=== PATIENT | female | born 1955 | race Caucasian/White ===

== ENCOUNTER → 2016-12-23 | Outpatient (CLI) | payer MEDICARE | LOC: LAB 14:34 | DX: Z79.899 Other long term (current) drug therapy (principal) | CPT/HCPCS: 80307 ==

== ENCOUNTER 2017-01-02 13:38 | Emergency (ER) | payer MEDICARE, OTHER ==
[2017-01-02 17:33] LABS: HEMOGLOBIN 15.8 gm/dl (12.3-15.3); RED BLOOD COUNT 5.56 M/UL (4.00-5.10); WHITE BLOOD COUNT 10.3 K/UL (4.5-11.0)
[2017-01-02 18:08] LABS: BUN/CREATININE RATIO 22 (0-10)
== END 2017-01-02 18:00 | disposition home or self-care (01) ==
LOC: ER1 13:38
PROVIDERS: Physician Assistant
DX: K59.00 Constipation, unspecified (principal); I10 Essential (primary) hypertension; F17.210 Nicotine dependence, cigarettes, uncomplicated; Z88.0 Allergy status to penicillin; Z88.6 Allergy status to analgesic agent; Z87.442 Personal history of urinary calculi; Z90.49 Acquired absence of other specified parts of digestive tract
CPT/HCPCS: 36415; 80053; 81001; 85025; 87077; 87086; 87186; 99284

== ENCOUNTER → 2020-08-17 | Outpatient (CLI) | payer OTHER ==
[~2020-08-17] MED LIST: BREO ELLIPTA 11 EACH INH; CRESTOR10 MG PO; ECOTRIN81 MG PO; FLOVENT DISKUS50 MCG INH; K-DUR TAB 10 M10 MEQ PO; K-DUR TAB 20 M20 MEQ PO; LASIX40 MG PO; LEVOCETIRIZINE D5 MG PO; LEXAPRO20 MG PO; MORPHINE SULFAT60 M3 PO; NITROSTAT0.4 MG SL; NORVASC 5 MG TAB5 MG PO; OMNICEF 300 MG300 MG PO; PERCOCET 5/325 T1 EA PO; PLAVIX 75 MG TA75 MG PO; PRINIVIL5 MG PO; PYRIDIUM100 MG PO; SYNTHROID125 MCG PO; ULTRAM50 MG PO; VITAMIN D250000 UNIT PO; XANAX1 MG PO
== END ==
LOC: MAMO 09:00 → CT 10:00 → MAMO 08-18 09:30
DX: Z12.31 Encounter for screening mammogram for malignant neoplasm of breast (principal); F17.210 Nicotine dependence, cigarettes, uncomplicated
CPT/HCPCS: 71250; 77063; 77067

== ENCOUNTER 2020-09-16 14:56 | Emergency (ER) | payer OTHER | END 2020-09-16 15:16 | disposition left against medical advice (07) | LOC: ER1 14:56 | DX: Z53.21 Procedure and treatment not carried out due to patient leaving prior to being seen by health care provider (principal) ==

== ENCOUNTER → 2020-10-01 | Outpatient (CLI) | payer OTHER | LOC: RAD 13:34 | DX: M25.562 Pain in left knee (principal); M17.12 Unilateral primary osteoarthritis, left knee | CPT/HCPCS: 73564 ==

== ENCOUNTER → 2020-10-12 | Outpatient (CLI) | payer OTHER | LOC: EXRD 13:41 | DX: R10.9 Unspecified abdominal pain (principal) | CPT/HCPCS: 76775 ==

== ENCOUNTER 2021-01-01 22:32 | Emergency (ER) | payer OTHER ==
[2021-01-01 23:35] LABS: BUN/CREATININE RATIO 12 (0-10)
[2021-01-02 00:03] LABS: HEMOGLOBIN 15.9 gm/dl (12.3-15.3); RED BLOOD COUNT 5.71 M/UL (4.00-5.10); WHITE BLOOD COUNT 11.8 K/UL (4.5-11.0)
[2021-01-12 06:11] LABS: ALPRAZOLAM Positive (.); ALPRAZOLAM CONFIRM 360 ng/mL (Cutoff=100); AMPHETAMINES, URINE Negative ng/mL (Cutoff=1000); BARBITURATE Negative ng/mL (Cutoff=200); BENZODIAZEPINES Positive ng/mL (Cutoff=100); BENZODIAZEPINES See Final Results ng/mL (Cutoff=200); CANNABINOIDS Negative ng/mL (Cutoff=20); CLONAZEPAM Negative (Cutoff=100); COCAINE (METABOLITE) Negative ng/mL (Cutoff=300); CODEINE Negative (Cutoff=300); CREATININE 123.7 mg/dL (20.0-300.0); FLURAZEPAM Negative (Cutoff=100); HYDROCODONE Negative (Cutoff=300); HYDROMORPHONE Positive (.); HYDROMORPHONE CONFIRM 634 ng/mL (Cutoff=300); LORAZEPAM Negative (Cutoff=100); MEPERIDINE Negative ng/mL (Cutoff=200); METHADONE Negative ng/mL (Cutoff=300); MIDAZOLAM Negative (Cutoff=100); MORPHINE Positive (.); MORPHINE CONFIRM >3000 ng/mL (Cutoff=300); NORDIAZEPAM Negative (Cutoff=100); OPIATES Positive ng/mL (Cutoff=300); OPIATES See Final Results ng/mL (Cutoff=300); OXAZEPAM Negative (Cutoff=100); PHENCYCLIDINE Negative ng/mL (Cutoff=25); PROPOXYPHENE Negative ng/mL (Cutoff=300); TEMAZEPAM Negative (Cutoff=100); TRIAZOLAM Negative (Cutoff=100)
== END 2021-01-02 16:30 | disposition short-term general hospital (02) ==
LOC: ER1 22:32
PROVIDERS: Nurse Practitioner
DX: M62.81 Muscle weakness (generalized) (principal); E87.6 Hypokalemia; M54.9 Dorsalgia, unspecified; G89.29 Other chronic pain; Z90.710 Acquired absence of both cervix and uterus; F17.200 Nicotine dependence, unspecified, uncomplicated
CPT/HCPCS: 70450; 71045; 73030; 73080; 73090; 80053; 80307; 81001; 82550; 82553; 83735; 83874; 84484; 85025; 93005; 93971; 99285

== ENCOUNTER → 2021-02-15 | Outpatient (CLI) | payer OTHER | LOC: US 13:30 | DX: E03.9 Hypothyroidism, unspecified (principal); R22.1 Localized swelling, mass and lump, neck | CPT/HCPCS: 76536 ==

== ENCOUNTER → 2021-03-03 | Outpatient (CLI) | payer OTHER | LOC: RAD 15:17 | DX: M25.521 Pain in right elbow (principal) | CPT/HCPCS: 73080 ==

== ENCOUNTER → 2021-04-13 | Outpatient (CLI) | payer OTHER | LOC: KOH-I 09:21 | DX: M24.021 Loose body in right elbow (principal); M19.021 Primary osteoarthritis, right elbow; S53.431A Radial collateral ligament sprain of right elbow, initial encounter | CPT/HCPCS: 73221 ==

== ENCOUNTER 2021-05-01 16:44 | Emergency (ER) | payer OTHER ==
[2021-05-01 17:44] LABS: HEMOGLOBIN 17.6 gm/dl (12.3-15.3); RED BLOOD COUNT 5.82 M/UL (4.00-5.10); WHITE BLOOD COUNT 14.2 K/UL (4.5-11.0)
[2021-05-01 17:54] LABS: BUN/CREATININE RATIO 15 (0-10)
== END 2021-05-01 21:56 | disposition home or self-care (01) ==
LOC: ER1 16:44
PROVIDERS: Student in an Organized Health Care Education/Training Program
DX: R07.89 Other chest pain (principal); I25.10 Atherosclerotic heart disease of native coronary artery without angina pectoris; I10 Essential (primary) hypertension; E87.6 Hypokalemia; F17.210 Nicotine dependence, cigarettes, uncomplicated; Z90.49 Acquired absence of other specified parts of digestive tract; Z90.710 Acquired absence of both cervix and uterus; Z88.0 Allergy status to penicillin; Z88.1 Allergy status to other antibiotic agents
CPT/HCPCS: 71045; 80053; 82550; 82553; 83874; 84484; 85025; 93005; 99285; Q9967

== ENCOUNTER → 2021-08-31 | Outpatient (CLI) | payer OTHER | LOC: KOH-I 09:00 | DX: M51.36 Other intervertebral disc degeneration, lumbar region (principal); M48.061 Spinal stenosis, lumbar region without neurogenic claudication; M53.3 Sacrococcygeal disorders, not elsewhere classified; M54.59 Other low back pain; R10.2 Pelvic and perineal pain; M47.818 Spondylosis without myelopathy or radiculopathy, sacral and sacrococcygeal region | CPT/HCPCS: 72131; 72192 ==

== ENCOUNTER → 2021-09-22 | Outpatient (CLI) | payer OTHER | LOC: HEART 5 09:46 | DX: J45.909 Unspecified asthma, uncomplicated (principal) | CPT/HCPCS: 94060; 94729 ==

== ENCOUNTER → 2021-10-15 | Day surgery (SDC) | payer OTHER ==
[~2021-10-15] MED LIST changes: +ALBUTEROL SULFATE; +SINGULAIR10 MG PO; +ZOLOFT25 MG PO
== END | disposition home or self-care (01) ==
LOC: OR 06:38
DX: Z12.11 Encounter for screening for malignant neoplasm of colon (principal); D12.0 Benign neoplasm of cecum; D12.2 Benign neoplasm of ascending colon; D12.5 Benign neoplasm of sigmoid colon; D12.3 Benign neoplasm of transverse colon; K29.70 Gastritis, unspecified, without bleeding; K44.9 Diaphragmatic hernia without obstruction or gangrene; K22.81 Esophageal polyp; K21.00 Gastro-esophageal reflux disease with esophagitis, without bleeding; I10 Essential (primary) hypertension; E78.5 Hyperlipidemia, unspecified; J42 Unspecified chronic bronchitis; M79.7 Fibromyalgia; F17.210 Nicotine dependence, cigarettes, uncomplicated; F41.9 Anxiety disorder, unspecified; F32.A Depression, unspecified; Z86.010 Personal history of colon polyps; Z88.0 Allergy status to penicillin; Z88.1 Allergy status to other antibiotic agents; Z88.6 Allergy status to analgesic agent; Z79.891 Long term (current) use of opiate analgesic; Z79.899 Other long term (current) drug therapy; Z90.49 Acquired absence of other specified parts of digestive tract
CPT/HCPCS: J2704; J7030

== ENCOUNTER 2022-02-28 17:06 | Emergency (ER) | payer OTHER ==
[2022-02-28 18:15] LABS: HEMOGLOBIN 14.9 gm/dl (12.3-15.3); RED BLOOD COUNT 4.99 M/UL (4.00-5.10); WHITE BLOOD COUNT 6.6 K/UL (4.5-11.0)
[2022-02-28 18:40] LABS: BUN/CREATININE RATIO 9 (0-10)
== END 2022-02-28 18:55 | disposition home or self-care (01) ==
LOC: ER1 17:06
PROVIDERS: Physician Assistant
DX: U07.1 COVID-19 (principal); Z90.89 Acquired absence of other organs; Z90.710 Acquired absence of both cervix and uterus; Z90.49 Acquired absence of other specified parts of digestive tract; F17.200 Nicotine dependence, unspecified, uncomplicated; Z88.8 Allergy status to other drugs, medicaments and biological substances
CPT/HCPCS: 70450; 80053; 82550; 82553; 84484; 85025; 93005; 99283